=== PATIENT | female | born 1955 | race Caucasian/White ===

== ENCOUNTER → 2017-03-17 | Outpatient (CLI) | payer OTHER ==
[~2017-03-17] MED LIST: BIFI4CAP PO; CIMZIA IM; FLUT16SP NS; GUAI1TBM PO; HYDR25TA6 PO; METHOTREXATE PO; MULTIVITAMIN PO
== END | disposition home or self-care (01) ==
LOC: CFH 08:26
PROVIDERS: ATTEND Nurse Practitioner
DX: M19.072 Primary osteoarthritis, left ankle and foot (principal); M85.80 Other specified disorders of bone density and structure, unspecified site; M21.6X2 Other acquired deformities of left foot; M25.772 Osteophyte, left ankle

== ENCOUNTER → 2017-08-13 | Outpatient (CLI) | payer OTHER ==
[~2017-08-13] MED LIST changes: -GUAI1TBM PO; +GUAI1TBM11 PO
== END | disposition home or self-care (01) ==
LOC: CFH 10:32
PROVIDERS: ATTEND Physician Assistant
DX: Z12.31 Encounter for screening mammogram for malignant neoplasm of breast (principal); C54.9 Malignant neoplasm of corpus uteri, unspecified
CPT/HCPCS: 71020; G0202

== ENCOUNTER → 2018-09-30 | Outpatient (CLI) | payer OTHER | END | disposition home or self-care (01) | LOC: CFH 10:14 | PROVIDERS: ATTEND Specialist | DX: Z12.31 Encounter for screening mammogram for malignant neoplasm of breast (principal) | CPT/HCPCS: 77067 ==

== ENCOUNTER → 2019-02-17 | Outpatient (CLI) | payer OTHER | END | disposition home or self-care (01) | LOC: CFH 11:37 | PROVIDERS: ATTEND Specialist | DX: C54.9 Malignant neoplasm of corpus uteri, unspecified (principal) | CPT/HCPCS: 71046 ==

== ENCOUNTER → 2019-04-30 | Outpatient (CLI) | payer OTHER ==
[~2019-04-30] MED LIST changes: -FLUT16SP NS; +FLUT16SP24 NS
== END | disposition home or self-care (01) ==
LOC: CFH 11:15
PROVIDERS: ATTEND Nurse Practitioner
DX: M85.89 Other specified disorders of bone density and structure, multiple sites (principal); N95.8 Other specified menopausal and perimenopausal disorders
CPT/HCPCS: 77080

== ENCOUNTER 2020-06-02 11:15 | Outpatient (CLI) | payer OTHER | END 2020-06-02 23:59 | disposition home or self-care (01) | LOC: CFH 11:15 | PROVIDERS: ATTEND Physician Assistant | DX: Z12.31 Encounter for screening mammogram for malignant neoplasm of breast (principal) | CPT/HCPCS: 77067 ==

== ENCOUNTER 2021-05-01 19:01 | Emergency (ER) | payer OTHER ==
[~2021-05-01] VITALS: Ht 167.6 cm; Wt 92.4 kg
[2021-05-01 20:00] LABS: BASOPHILS % (AUTO) 1 % (0-1); EOSINOPHILS % (AUTO) 3 % (1-7); LYMPHOCYTES % (AUTO) 29 % (22-44); MEAN CORPUSCULAR HEMOGLOBIN 35.3 pg (27.0-34.8); MEAN CORPUSCULAR HGB CONC 34.2 g/dL (32.4-35.8); MEAN PLATELET VOLUME 7.7 fL (7.4-10.4); MONOCYTES % (AUTO) 15 % (2-9); NEUTROPHILS % (AUTO) 52 % (42-75); PLATELET COUNT 286 x10^3/uL (130-400); RED CELL DISTRIBUTION WIDTH 13.7 % (9.6-15.2)
--- NOTE | 2021-05-01 20:52 | NUR ---
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
--- NOTE | 2021-05-01 21:04 | NUR ---
Right wrist with slight redness, minimal swelling.
[2021-05-01] MEDS ORDERED: CEPHALEXIN 500 MG CAPSULE ONE (21:17)
--- NOTE | 2021-05-01 21:20 | NUR ---
Medicated per order. Waiting for d/c papers and rx.
[2021-05-01 21:25] VITALS: BP 145/89
[2021-05-01] MEDS ORDERED: CEPHALEXIN 500 MG CAPSULE PO ONE (21:30)
== END 2021-05-01 21:27 | disposition home or self-care (01) ==
LOC: ED 21:26
DX: S60.811A Abrasion of right wrist, initial encounter (principal); L03.113 Cellulitis of right upper limb; I10 Essential (primary) hypertension; W55.03XA Scratched by cat, initial encounter; Y93.89 Activity, other specified; Y92.89 Other specified places as the place of occurrence of the external cause; Y99.8 Other external cause status
CPT/HCPCS: 36415; 85025; 99284

== ENCOUNTER 2021-05-21 11:53 | Outpatient (CLI) | payer OTHER ==
[2021-05-21] MEDS ORDERED: OMNIPAQUE 350 MG/ML, 100ML BOTTLE ONE (12:00)
== END 2021-05-21 23:59 | disposition home or self-care (01) ==
LOC: CFH 11:53
PROVIDERS: ATTEND Nurse Practitioner Family
DX: M18.11 Unilateral primary osteoarthritis of first carpometacarpal joint, right hand (principal)
CPT/HCPCS: 73201; Q9967